=== PATIENT | female | born 1945 | race Caucasian/White ===

== ENCOUNTER → 2016-12-23 | Outpatient (CLI) | payer MEDICARE ==
[2016-02-01 09:40] VITALS: BP 122/61
[~2016-12-23] MED LIST: ALBU8.5H3 INH; ALPR1TAB2 PO; BUDE10.2 IH; GABA-585 PO; LISI-334 PO; METF500T9 PO; METH4TAB7 PO; OXYB5TAB7 PO; TRAM50TA PO
--- NOTE | 2016-12-23 10:56 | RAD ---
Abdominal aortic ultrasound, 12/23/2016: History: Atherosclerosis, screening for aneurysm Duplex evaluation of the abdominal aorta was performed including grayscale, color-flow and spectral Doppler analysis. There are moderate scattered atherosclerotic plaques. The aorta is not dilated. No high-grade stenosis is evident. IMPRESSION: 1. Moderate aortic atherosclerosis. 2. No evidence of aneurysm.
--- NOTE | 2016-12-23 11:08 | RAD ---
CT of the chest without contrast, 12/23/2016: History: Chronic cough, tobacco use Multidetector CT imaging was performed without contrast. Multiplanar reconstructions were produced. There is a calcified granuloma in the right upper lobe. There are a few scattered linear opacities in both lungs which are most prominent peripherally and in the apices. These are probably scars. There are a few faint scattered peripheral centrilobular opacities, best demonstrated on the thin axial reconstructions. This most likely represents respiratory bronchiolitis in this patient with a smoking history. No pulmonary mass or significant consolidation is seen. There is no evidence of pleural fluid. There is moderate calcific plaquing of the thoracic aorta without evidence of aneurysm. Moderate scattered coronary artery calcifications are present. The heart is of normal size. Calcified mediastinal lymph nodes are seen. No mediastinal adenopathy is evident. A couple of tiny nonspecific thyroid nodules are noted. Moderate multilevel hypertrophic spurring is present in the spine. IMPRESSION: 1. Mild parenchymal scarring. 2. Faint peripheral centrilobular opacities compatible with respiratory bronchiolitis. Minimal hypersensitivity pneumonitis could also give this appearance. 3. Calcific plaquing of the aorta and coronary arteries. PQRS Compliance Statement: One or more of the following individualized dose reduction techniques were utilized for this examination: 1. Automated exposure control 2. Adjustment of the mA and/or kV according to patient size 3. Use of iterative reconstruction technique
== END | disposition home or self-care (01) ==
LOC: CT 09:57
PROVIDERS: ATTEND Nurse Practitioner Family
DX: I70.0 Atherosclerosis of aorta (principal); I25.10 Atherosclerotic heart disease of native coronary artery without angina pectoris; J44.9 Chronic obstructive pulmonary disease, unspecified; J67.9 Hypersensitivity pneumonitis due to unspecified organic dust; I10 Essential (primary) hypertension; E11.65 Type 2 diabetes mellitus with hyperglycemia; F17.210 Nicotine dependence, cigarettes, uncomplicated; Z79.891 Long term (current) use of opiate analgesic
CPT/HCPCS: 71250; 76770

== ENCOUNTER 2020-08-19 13:52 | Emergency (ER) | payer MEDICARE ==
[~2020-08-19] VITALS: Ht 157.5 cm; Wt 72.0 kg
[~2020-08-19 13:52] MED LIST changes: +ALBU2.5V8 INH; -ALBU8.5H3 INH; +METF-658 PO; -METF500T9 PO; +OXYB5TAB10 PO; -OXYB5TAB7 PO
[2020-08-19 14:41] VITALS: BP 188/72
--- NOTE | 2020-08-19 15:37 | RAD ---
XR KNEE 4 VIEWS WITH PATELLA_RT History: Reason: FALL WITH KNEE PAIN/SWELLING. BEST IMAGES OBTAINED DUE TO PAIN / Spl. Instructions: / History: Technique: 4 views of the right knee. Comparison: None. Findings: Normal alignment. No fracture. Advanced degenerative changes most prominent within the medial patello femoral compartment. Large knee joint effusion. Ossific fragment within the suprapatellar recess, may relate to calcified intra-articular loose body. Impression: 1. No acute osseous abnormality. 2. Large knee joint effusion. 3. Advanced knee degenerative changes with calcified intra-articular loose body. Electronically signed by: Fei Atwood DO (08/19/2020 3:34 PM) [id number]
--- NOTE | 2020-08-19 15:39 | PHYS DOC ---
Past History Past Medical History: Asthma, COPD, Hypertension Past Surgical History: Other Alcohol Use: None Drug Use: None Adult General Chief Complaint Chief Complaint: KNEE INJURY HPI HPI Patient is a 75yo female presenting for right knee pain. Reports falling forward onto hard gravel surface ~72 hours ago. Didn't hit head or lose consciousness but immediate impact was anterior right knee. She reports focal anterior pain that does not radiate with increased swelling and effusion. No prior right knee injuries, denies any twisting type mechanism during fall. She has been ambulator y since event but admits it hurts when fully weight-bearing. Review of Systems Review of Systems Fourteen body systems of review of systems have been reviewed. See HPI for pertinent positives and negative responses, other avelar all other systems are negative, non-pertinent or non-contributory Allergies Allergies Allergies Coded Allergies Type Severity Reaction Last Updated Verified Penicillins Allergy Intermediate 01/17/16 Yes Physical Exam Physical Exam Constitutional: Well developed, well nourished, no acute distress, non-toxic appearance. HENT: Normocephalic, atraumatic, bilateral external ears normal, oropharynx moist, no oral exudates, nose normal. Eyes: PERRLA, EOMI, conjunctiva normal, no discharge. Neck: Normal range of motion, no tenderness, supple, no stridor. Cardiovascular: Heart rate regular per monitor Lungs & Thorax: No respiratory distress or accessory muscle use, bilateral chest rise Abdomen: Abdomen soft, non-tender, bowel sounds present in all quadrants, no guarding or rebound, nonacute abdomen. Skin: Warm, dry, no erythema, no rash. Back: No tenderness, no CVA tenderness. Extremities: No cyanosis, no clubbing, dec ROM right knee with felx/ext due to pain. Edema and soft tissue swelling noted to anterior patella region in addition to posterior knee. Neg lorena/post charley tests, neg valgus and varus tests. No fibular head tenderness. Unremarkable testing of contralateral knee in addition to right hip and ankle joints Neurologic: Alert and oriented X 3, grossly normal motor & sensory function, no focal deficits noted. Psychologic: Affect normal, judgement normal, mood normal. Current Patient Data Vital Signs Vital Signs Date Time Temp Pulse Resp B/P (MAP) Pulse Ox O2 Delivery O2 Flow Rate FiO2 08/19/20 14:41 98.5 59 18 188/72 (110) 98 Room Air EKG EKG [] Radiology/Procedures Radiology/Procedures XR KNEE 4 VIEWS WITH PATELLA_RT History: Reason: FALL WITH KNEE PAIN/SWELLING. BEST IMAGES OBTAINED DUE TO PAIN / Spl. Instructions: / History: Technique: 4 views of the right knee. Comparison: None. Findings: Normal alignment. No fracture. Advanced degenerative changes most prominent within the medial patellofemoral compartment. Large knee joint effusion. Ossific fragment within the suprapatellar recess, may relate to calcified intra- articular loose body. Impression: 1. No acute osseous abnormality. 2. Large knee joint effusion. 3. Advanced knee degenerative changes with calcified intra-articular loose body. Electronically signed by: Fei Atwood DO (08/19/2020 3:34 PM) [id number] Heart Score Risk Factors: Risk Factors: DM, Current or recent (<one month) smoker, HTN, HLP, family history of CAD, obesity. Risk Scores: Risk Factors: DM, Current or recent (<one month) smoker, HTN, HLP, family histo ry of CAD, obesity. Course & Med Decision Making Course & Med Decision Making Pertinent Labs and Imaging studies reviewed. (See chart for details) Discussed role of draining knee effusion but patient deferred. She is comfo rtable going home with ongoing supportive care such as NSAIDs/tylenol for pain, RICE protocol and weight-bearing as tolerated with close PCP follow-up SRP discussed with good understanding, all questions and concerns addressed prior to ER departure Dolores Disclaimer Dolores Disclaimer This electronic medical record was generated, in whole or in part, using a voice recognition dictation system. Departure Departure: Impression: Primary Impression: Right knee injury Disposition: 01 DC HOME SELF CARE/HOMELESS Condition: STABLE Referrals: NON,STAFF (PCP) Patient Instructions: Contusion, Knee Effusion, Knee Wraps (Elastic Bandage) and RICE Additional Instructions: It is likely that you have experienced a contusion/strain to your right knee that is causing you pain. The best treatment for this injury is continued range of motion (non weight bearing) to prevent a frozen joint. A Rest, Ice, Compression, Elevation (RICE) strategy may also be helpful in the acute phase. Please follow up with your primary doctor ILENE for repeat evaluation and consideration for repeat radiograph imaging versus other modalities of imaging of right knee as indicated.. As discussed there might be a role in further imaging with potential for orthopedic referral. Please return to the ED if new or worrisome symptoms arise prior to outpatient follow-up. It was a pleasure to take care of you and I wish you a speedy recovery! LETICIA SANTOS DO Aug 19, 2020 15:39
== END 2020-08-19 16:35 | disposition home or self-care (01) ==
LOC: ER 13:52
DX: S89.91XA Unspecified injury of right lower leg, initial encounter (principal); J44.9 Chronic obstructive pulmonary disease, unspecified; I10 Essential (primary) hypertension; Z88.0 Allergy status to penicillin; W18.39XA Other fall on same level, initial encounter; Y93.89 Activity, other specified; Y92.89 Other specified places as the place of occurrence of the external cause; Y99.8 Other external cause status
CPT/HCPCS: 73564; 99284